=== PATIENT | female | born 1965 | race African-American/Black ===

== ENCOUNTER 2025-09-05 18:51 | Observation (INO) | payer MEDICAID ==
[~2025-09-05] VITALS: Ht 167.6 cm; Wt 86.4 kg
[2025-09-05] MEDS: LORazepam 2 MG/ML VIAL IM ONE (20:57)
[2025-09-05] MEDS ORDERED: IOHEXOL 350 MG/ML 100 ML VIAL ONE (22:00)
[2025-09-05] MEDS ORDERED: SODIUM CHLORIDE 0.9% 100 ML ONE (22:00)
[2025-09-05 22:12] LABS: PLATELET COUNT (AUTO) 290 K/uL (150-450); RED BLOOD CELL COUNT(AUTO) 4.03 MIL/uL (4.00-5.20); RED CELL DISTRIBUTION WIDTH 16.8 % (11.5-14.5); WHITE BLOOD COUNT (AUTO) 8.2 K/uL (4.5-11.0)
[2025-09-05 22:19] LABS: CALCIUM, TOTAL 9.1 mg/dL (8.8-10.5); CREATININE 0.68 mg/dL (0.60-1.30); GLOMERULAR FILTR. RATE CALC > 60 mL/min (>60); GLUCOSE,RANDOM 183 mg/dL (70-110); SODIUM SERUM 137 mmol/L (136-145); UREA NITROGEN, BLOOD 6 mg/dL (7-18)
[2025-09-05 22:32] LABS: TROPONIN I-HIGH SENSITIVITY 5 ng/L (<51)
[2025-09-05] MEDS ORDERED: ACETAMINOPHEN 325 MG TABLET PO PRN (23:00)
[2025-09-05] MEDS ORDERED: MAGNESIUM HYDROXIDE SUSPENSION 30 ML UDCUP PO PRN (23:00)
[2025-09-05] MEDS ORDERED: OxyCODONE HCL/ACETAMINOPHEN 5-325 MG TABLET PO PRN (23:00)
[2025-09-05] MEDS ORDERED: ONDANSETRON HCL 4 MG/2 ML VIAL IVP PRN (23:00)
[2025-09-05] MEDS: METOPROLOL TARTRATE 25 MG TABLET PO SCH (23:22)
[2025-09-05] MEDS: POTASSIUM CHLORIDE 20 MEQ ER TABLET PO ONE (23:22)
[2025-09-05] MEDS: SODIUM CHLORIDE 0.9% 1,000 ML IV ONE (23:23)
[2025-09-06 01:54] VITALS: BP 122/72; PULSE 62; RESP 18; TEMP 98; O2SAT 100
[2025-09-06] MEDS ORDERED: INFLUENZA VIRUS VACCINE TVS (6MO+) 2025-26/PF 45 MCG/0.5 ML SYRINGE IM. ONE (03:45)
[2025-09-06 05:44] VITALS: BP 124/66; PULSE 69; RESP 20; TEMP 98.1; O2SAT 100
[2025-09-06 07:34] LABS: APPEARANCE,URINE CLEAR (CLEAR); GLUCOSE, URINE (UA) NEGATIVE (NEGATIVE); LEUKOCYTE ESTERASE ,URINE NEGATIVE (NEGATIVE); NITRATE,URINE NEGATIVE (NEGATIVE); OCCULT BLOOD,URINE NEGATIVE (NEGATIVE); SPECIFIC GRAVITIY, URINE > 1.030 (1.003-1.030)
[2025-09-06 07:46] LABS: SQUAMOUS EPITHELIAL CELL,UR Few /LPF (None Seen)
[2025-09-06 07:58] LABS: AMPHET/METH SCREEN,URINE NEGATIVE (NEGATIVE); BARBITURATE SCREEN, URINE NEGATIVE (NEGATIVE); CANNABINOID SCREEN,URINE POSITIVE (NEGATIVE); COCAINE SCREEN,URINE NEGATIVE (NEGATIVE); METHADONE SCREEN, URINE NEGATIVE (NEGATIVE)
[2025-09-06 07:59] LABS: ALCOHOL, URINE DRUG SCREEN NEGATIVE (NEGATIVE)
[2025-09-06 08:01] LABS: PH,URINE DRUG SCREEN 8.0 (5.0-8.0)
[2025-09-06 09:02] VITALS: BP 125/66; PULSE 72; RESP 18; TEMP 97.9; O2SAT 100
[2025-09-06] MEDS: PANTOPRAZOLE SODIUM 40 MG/VIAL IVP SCH (09:15)
[2025-09-06] MEDS: DOCUSATE SODIUM 100 MG CAPSULE PO SCH (09:20)
[2025-09-06 12:02] LABS: CALCIUM, TOTAL 8.8 mg/dL (8.8-10.5); CREATININE 0.54 mg/dL (0.60-1.30); GLOMERULAR FILTR. RATE CALC > 60 mL/min (>60); GLUCOSE,RANDOM 109 mg/dL (70-110); SODIUM SERUM 136 mmol/L (136-145); UREA NITROGEN, BLOOD 5 mg/dL (7-18)
== END 2025-09-06 13:05 | disposition home or self-care (01) ==
LOC: EMS 18:52 → EDH 22:49 → INTOOBSV 22:49 → 4E 09-06 01:53
PROVIDERS: ADMIT Internal Medicine; ATTEND Internal Medicine
DX: E87.6 Hypokalemia (principal); F41.9 Anxiety disorder, unspecified; E05.00 Thyrotoxicosis with diffuse goiter without thyrotoxic crisis or storm; F32.A Depression, unspecified; R11.2 Nausea with vomiting, unspecified; R10.84 Generalized abdominal pain; Z79.899 Other long term (current) drug therapy; Z98.890 Other specified postprocedural states
CPT/HCPCS: 99219 ×2; 80048 ×2; 83690; 84439; 84443; 84484; 85025; 36415 ×2; 71045; 74177; 99285; 93005; 96361 ×2; 96374; 96372; 81001; 96375; 96376; 80307 ×2; Q9967; J1171 ×2; J2060; J7030 ×2; J7050; J2470; G0378

== ENCOUNTER 2025-09-07 18:52 | Emergency (ER) | payer MEDICAID ==
[~2025-09-07] VITALS: Ht 167.6 cm; Wt 78.2 kg
[2025-09-07 18:57] VITALS: BP 146/113; TEMP 98.4
[2025-09-07 19:18] LABS: APPEARANCE,URINE CLEAR (CLEAR); GLUCOSE, URINE (UA) 70-100 mg/dL (NEGATIVE); LEUKOCYTE ESTERASE ,URINE NEGATIVE (NEGATIVE); NITRATE,URINE NEGATIVE (NEGATIVE); OCCULT BLOOD,URINE NEGATIVE (NEGATIVE); PH,URINE DRUG SCREEN 6.5 (5.0-8.0); SPECIFIC GRAVITIY, URINE 1.026 (1.003-1.030)
[2025-09-07 19:30] LABS: SQUAMOUS EPITHELIAL CELL,UR Rare /LPF (None Seen)
[2025-09-07 19:33] LABS: ALCOHOL, URINE DRUG SCREEN NEGATIVE (NEGATIVE); AMPHET/METH SCREEN,URINE NEGATIVE (NEGATIVE); BARBITURATE SCREEN, URINE NEGATIVE (NEGATIVE); CANNABINOID SCREEN,URINE POSITIVE (NEGATIVE); COCAINE SCREEN,URINE NEGATIVE (NEGATIVE); METHADONE SCREEN, URINE NEGATIVE (NEGATIVE)
[2025-09-07 22:32] LABS: PLATELET COUNT (AUTO) 312 K/uL (150-450); RED BLOOD CELL COUNT(AUTO) 4.21 MIL/uL (4.00-5.20); RED CELL DISTRIBUTION WIDTH 16.4 % (11.5-14.5); WHITE BLOOD COUNT (AUTO) 10.0 K/uL (4.5-11.0)
[2025-09-07] MEDS ORDERED: KETOROLAC TROMETHAMINE 30 MG/ML VIAL IVP ONE (22:45)
[2025-09-07 22:46] LABS: CALCIUM, TOTAL 9.4 mg/dL (8.8-10.5); CREATININE 0.68 mg/dL (0.60-1.30); GLOMERULAR FILTR. RATE CALC > 60 mL/min (>60); GLUCOSE,RANDOM 187 mg/dL (70-110); SODIUM SERUM 134 mmol/L (136-145); UREA NITROGEN, BLOOD 6 mg/dL (7-18)
[2025-09-07 22:49] LABS: ALCOHOL, BLOOD (SERUM) < 3 mg/dL (0-10)
[2025-09-07 22:50] LABS: ASPARTATE AMINOTRANSFERASE 18 U/L (15-37); TOTAL PROTEIN, SERUM 8.3 g/dL (6.4-8.2)
[2025-09-07] MEDS ORDERED: IOHEXOL 300 MG/ML 100 ML VIAL ONE (23:20)
[2025-09-07] MEDS ORDERED: SODIUM CHLORIDE 0.9% 100 ML ONE (23:20)
[2025-09-07] MEDS: ONDANSETRON HCL 4 MG/2 ML VIAL IVP ONE (23:38)
[2025-09-07] MEDS: SODIUM CHLORIDE 0.9% 1,000 ML IV ONE (23:38)
[2025-09-07] MEDS: LORazepam 2 MG/ML VIAL IVP ONE (23:39)
[2025-09-07] MEDS: KETOROLAC TROMETHAMINE 15 MG/ML VIAL IVP ONE (23:40)
[2025-09-08] MEDS: MORPHINE SULFATE 2 MG/ML SYRINGE IVP ONE (00:42)
[2025-09-08] MEDS: MORPHINE SULFATE 2 MG/ML SYRINGE IM ONE (01:30)
[2025-09-08 01:56] VITALS: PULSE 108; RESP 20; O2SAT 100
== END 2025-09-08 02:23 | disposition home or self-care (01) ==
LOC: EMS 18:52
DX: D25.9 Leiomyoma of uterus, unspecified (principal); R10.32 Left lower quadrant pain; F41.9 Anxiety disorder, unspecified; E03.9 Hypothyroidism, unspecified; Z98.890 Other specified postprocedural states; Z91.013 Allergy to seafood
CPT/HCPCS: 99285; 96374; 96375 ×2; 96361; 80048; 80076; 81001; 83690; 85025; 36415; 93005; 80307; 74177; 96372; J1885; G0480; J2060; J2405; J7030; J7050; Q9967; J2270